=== PATIENT | female | born 2000 | race Caucasian/White ===

== ENCOUNTER 2021-03-03 11:37 | Emergency (ER) | payer BC ==
[2021-03-03 11:47] VITALS: RESP 18; TEMP 98.7
[2021-03-03] MEDS ORDERED: SODIUM CHLORIDE 0.9% 2,000 ML IV STA (12:41)
[2021-03-03] MEDS ORDERED: diphenhydrAMINE 50 MG/ML 1 ML VIAL IVP STA (12:41)
[2021-03-03] MEDS ORDERED: METOCLOPRAMIDE 5 MG/ML 2 ML VIAL IVP STA (12:41)
[2021-03-03 13:19] LABS: Basophils % (A) 1 %; Eosinophils % (A) 1 %; HCT 37.6 % (34.0-46.0); HGB 13.2 gm/dL (11.4-16.0); Lymphocytes # (A) 1.4 k/uL (1.0-4.8); Lymphocytes % (A) 27 %; MCH 30.6 pg (25.0-35.0); MCHC 35.1 g/dL (31.0-37.0); MCV 87.2 fL (80.0-100.0); Mean Platelet Volume 8.4; Monocytes # (A) 0.2 k/uL (0-1.0); Monocytes % (A) 5 %; Neutrophils # (A) 3.4 k/uL (1.3-7.7); Neutrophils % (A) 65 %; Platelet Count 150 k/uL (150-450); RBC 4.31 m/uL (3.80-5.40); RDW 14.1 % (11.5-15.5); WBC 5.2 k/uL (3.8-10.6)
[2021-03-03 13:32] LABS: ALT 8 U/L (4-34); AST 25 U/L (14-36); African American GFR (CKD) >90 (>60 ml/min/1.73 sqM); Albumin 4.9 g/dL (3.5-5.0); Alkaline Phosphatase 45 U/L (38-126); Anion Gap 12 mmol/L; Blood Urea Nitrogen 8 mg/dL (7-17); Calcium 9.5 mg/dL (8.4-10.2); Carbon Dioxide 22 mmol/L (22-30); Chloride 102 mmol/L (98-107); Glucose 80 mg/dL (74-99); Non-African American GFR(CKD) >90 (>60 ml/min/1.73 sqM); Potassium 3.7 mmol/L (3.5-5.1); Sodium 136 mmol/L (137-145); Total Bilirubin 0.6 mg/dL (0.2-1.3); Total Protein 7.8 g/dL (6.3-8.2)
[2021-03-03 13:44] LABS: Appearance,Urine Cloudy (Clear); Bilirubin,Urine Negative (Negative); Blood,Urine Negative (Negative); Color,Urine Yellow; Glucose,Urine (UA) Negative (Negative); Ketones,Urine 3+ (Negative); Leukocyte Esterase,Urine Negative (Negative); Mucus,Urine Few /hpf; Nitrite,Urine Negative (Negative); Protein,Urine Trace (Negative); RBC,Urine 1 /hpf (0-5); Specific Gravity,Urine 1.027 (1.001-1.035); Squamous Epithelial Cell,Urine 3 /hpf (0-4); Urobilinogen,Urine <2.0 mg/dL (<2.0); WBC,Urine 2 /hpf (0-5)
--- NOTE | 2021-03-03 14:21 | ED ---
General Adult HPI - General Chief complaint: Nausea/Vomiting/Diarrhea Stated complaint: 9 wks preg, vomiting Time Seen by Provider: 03/03/21 11:52 Source: patient, family Mode of arrival: ambulatory Limitations: no limitations - History of Present Illness Initial comments: 20-year-old female presents to the emergency room for a chief complaint of nausea vomiting. Patient is a female currently 9 weeks with a confirmed intrauterine on ultrasound at her [facility] [facility] Dr. Jay's office. Patient states for the past few weeks she has had nausea vomiting. However the past day or so she has been unable to keep down food. Patient states that she is not having any abdominal pain or vaginal bleeding. No fevers. No diarrhea. Patient is not currently on any medications for nausea.Patient has no other complaints at this time including shortness of breath, chest pain, abdominal pain, headache, or visual changes. - Related Data Home Medications Medication Instructions Recorded Confirmed Thyroid,Pork [[place] Thyroid] 15 mg PO DAILY 03/03/21 03/03/21 Previous Rx's Medication Instructions Recorded Doxylamine Succinate [Unisom] 25 mg PO HS #14 tablet 03/03/21 Pyridoxine HCl (Vitamin B6) 25 mg PO HS #14 tablet 03/03/21 [Pyridoxine HCl] Allergies Allergy/AdvReac Type Severity Reaction Status Date / Time No Known Allergies Allergy Verified 03/03/21 12:27 Review of Systems ROS Statement: Those systems with pertinent positive or pertinent negative responses have been documented in the HPI. ROS Other: All systems not noted in ROS Statement are negative. Past Medical History Past Medical History: No Reported History History of Any Multi-Drug Resistant Organisms: None Reported Additional Past Surgical History / Comment(s): lumpectomy left breast Past Psychological History: No Psychological Hx Reported Smoking Status: Never smoker Past Alcohol Use History: None Reported Past Drug Use History: None Reported General Exam Limitations: no limitations General appearance: alert, in no apparent distress Head exam: Present: atraumatic Eye exam: Present: normal appearance, PERRL, EOMI. Absent: scleral icterus, conjunctival injection ENT exam: Present: normal exam, mucous membranes moist Neck exam: Present: normal inspection, full ROM. Absent: tenderness Respiratory exam: Present: normal lung sounds bilaterally. Absent: respiratory distress, wheezes Cardiovascular Exam: Present: regular rate, normal rhythm, normal heart sounds GI/Abdominal exam: Present: soft, normal bowel sounds. Absent: distended, tende rness Course Vital Signs 03/03/21 11:43 Temperature 98.7 F Pulse Rate 74 Respiratory 18 Rate Blood Pressure 114/64 O2 Sat by Pulse 100 Oximetry Medical Decision Making - Medical Decision Making Vitals are stable. Patient is well-appearing. CBC CMP unremarkable. Ur inalysis does show 3+ ketones, likely related to dehydration. Patient was given Reglan as well as 2 L of fluid. Did have significant improvement in symptoms. She denies any vomiting in the emergency room. We will start patient On Unisom and B6. Patient can be discharged home to follow up with [employer]. If she has any worsening symptoms she'll return here in the emergency room. - Lab Data Result diagrams: 03/03/21 13:00 03/03/21 13:00 Lab Results 03/03/21 03/03/21 03/03/21 Range/Units 13:00 13:00 13:00 WBC 5.2 (3.8-10.6) k/uL RBC 4.31 (3.80-5.40) m/uL Hgb 13.2 (11.4-16.0) gm/dL Hct 37.6 (34.0-46.0) % MCV 87.2 (80.0-100.0) fL MCH 30.6 (25.0-35.0) pg MCHC 35.1 (31.0-37.0) g/dL RDW 14.1 (11.5-15.5) % Plt Count 150 (150-450) k/uL MPV 8.4 Neutrophils % 65 % Lymphocytes % 27 % Monocytes % 5 % Eosinophils % 1 % Basophils % 1 % Neutrophils # 3.4 (1.3-7.7) k/uL Lymphocytes # 1.4 (1.0-4.8) k/uL Monocytes # 0.2 (0-1.0) k/uL Eosinophils # 0.0 (0-0.7) k/uL Basophils # 0.0 (0-0.2) k/uL Sodium 136 L (137-145) mmol/L Potassium 3.7 (3.5-5.1) mmol/L Chloride 102 (98-107) mmol/L Carbon Dioxide 22 (22-30) mmol/L Anion Gap 12 mmol/L BUN 8 (7-17) mg/dL Creatinine 0.51 L (0.52-1.04) mg/dL Est GFR (CKD-EPI)AfAm >90 (>60 ml/min/1.73 sqM) Est GFR (CKD-EPI)NonAf >90 (>60 ml/min/1.73 sqM) Glucose 80 (74-99) mg/dL Calcium 9.5 (8.4-10.2) mg/dL Total Bilirubin 0.6 (0.2-1.3) mg/dL AST 25 (14-36) U/L ALT 8 (4-34) U/L Alkaline Phosphatase 45 (38-126) U/L Total Protein 7.8 (6.3-8.2) g/dL Albumin 4.9 (3.5-5.0) g/dL Urine Color Yellow Urine Appearance Cloudy H (Clear) Urine pH 6.0 (5.0-8.0) Ur Specific [place] 1.027 (1.001-1.035) Urine Protein Trace H (Negative) Urine Glucose (UA) Negative (Negative) Urine Ketones 3+ H (Negative) Urine Blood Negative (Negative) Urine Nitrite Negative (Negative) Urine Bilirubin Negative (Negative) Urine Urobilinogen <2.0 (<2.0) mg/dL Ur Leukocyte Esterase Negative (Negative) Urine RBC 1 (0-5) /hpf Urine WBC 2 (0-5) /hpf Ur Squamous Epith Cells 3 (0-4) /hpf Urine Mucus Few H (None) /hpf Disposition Clinical Impression: Nausea and vomiting during Disposition: HOME SELF-CARE Condition: Good Instructions (If sedation given, give patient instructions): Nausea and Vomiting in (ED) Additional Instructions: Try small sips of fluid. Take medication as directed. Follow-up with your doctor in one to 2 days. Return to the emergency room for any worsening symptoms. Prescriptions: Pyridoxine HCl (Vitamin B6) [Pyridoxine HCl] 25 mg PO HS #14 tablet Doxylamine Succinate [Unisom] 25 mg PO HS #14 tablet Is patient prescribed a controlled substance at d/c from ED?: No Referrals: Sabine Ponce DO [Primary Care Provider] - 1-2 days Time of Disposition: 14:19
[2021-03-03 14:45] VITALS: BP 103/62; PULSE 85
== END 2021-03-03 14:44 | disposition home or self-care (01) ==
LOC: EC 11:37
DX: O21.9 Vomiting of pregnancy, unspecified (principal); Z3A.09 9 weeks gestation of pregnancy
CPT/HCPCS: 99284; 96374; 96375; 96361 ×2; 36415; 80053; 85025; 81001; J1200; J2765

== ENCOUNTER 2021-09-25 11:18 | Inpatient (IN) | payer BC ==
--- NOTE | 2021-09-25 12:44 | US ---
EXAMINATION TYPE: US OB >= 14 wk fetus DATE OF EXAM: 09/25/2021 COMPARISON: None CLINICAL HISTORY: Dr. Jay ordered EFW and GEREMIAS, GEREMIAS low in the office TECHNIQUE: Transabdominal (TA) GESTATIONAL AGE / DATING Physician Established: (39 weeks/1 days) EDC: 10/01/21 Dates by LMP: LMP unknown Dates by First Scan: No previous this is first scan here Dates by Current Scan: (38 weeks/0 days) EDC: 10/09/21 SURVEY IUP: Single PLACENTA: Anterior PREVIA: No Previa GEREMIAS: 6.0 cm Oligohydramnios CERVICAL LENGTH (transabdominal: norm > 3.0cm): 3.0 cm BIOMETRY PRESENTATION: Vertex LIE: Longitudinal BPD: 9.3 cm 38 weeks / 0 days HC: 33.4 cm 38 weeks / 6 days AC: 33.1 cm 37 weeks / 0 days FL: 7.4 cm 38 weeks / 1 days ESTIMATED WEIGHT IN GRAMS: 3241 grams ESTIMATED WEIGHT IN LBS/OZ: 7 lbs. 2 oz. WEIGHT PERCENTAGE BASED ON ESTABLISHED DATES: 31% HC/AC: 1.02 Normal FL/AC: 22% Normal HEART RATE: 130 bpm RHYTHM: Normal incidental finding: small bilateral scrotal hydroceles IMPRESSION: 1. Oligohydramnios. Measured GEREMIAS is 6.0 cm. 2. Single intrauterine gestation estimated at 38 weeks 0 days gestation based on current ultrasound m easurements. Cardiac activity measures 130 bpm. 3. Incidental note made of bilateral small hydroceles
--- NOTE | 2021-09-25 13:03 | P.HPOB ---
History of Present Illness H&P Date: 09/25/21 Chief Complaint: IUP at 39 and 1/sevenths weeks, oligohydramnios This is a 21-year-old 1 para 0 at 39 one sevenths weeks that presents to labor and delivery from the office with diagnosis of oligohydramnios, GEREMIAS in the office 4. Patient had a repeat GEREMIAS done in triage level of 5. Patient does note good movement. Patient has been receiving routine care with has been essentially uncomplicated. On bloodwork this patient's blood type of O+, rubella status immune, RPR is nonreactive, B surface antigen negative, HIV negative, group beta strep culture is positive. Review of Systems Constitutional: Denies chills, Denies fatigue, Denies fever Ears, nose, mouth and throat: Denies headache Cardiovascular: Reports leg edema Respiratory: Denies dyspnea Gastrointestinal: Denies constipation, Denies diarrhea, Denies nausea, Denies vomiting Genitourinary: Reports Past Medical History Past Medical History: No Reported History History of Any Multi-Drug Resistant Organisms: None Reported Additional Past Surgical History / Comment(s): lumpectomy left breast Smoking Status: Never smoker Medications and Allergies Home Medications Medication Instructions Recorded Confirmed Type Thyroid,Pork [[place] Thyroid] 15 mg PO DAILY 03/03/21 09/25/21 History Pnv No.95/Ferrous Fum/Folic AC 1 each PO DAILY 09/25/21 09/25/21 History [ Multivitamin Tablet] Allergies Allergy/AdvReac Type Severity Reaction Status Date / Time No Known Allergies Allergy Verified 09/25/21 11:29 Exam Osteopathic Statement: *. No significant issues noted on an osteopathic structural exam other than those noted in the History and Physical/Consult. Intake and Output 09/24/21 09/25/21 09/25/21 22:59 06:59 14:59 Other: Weight 77.111 kg Targeted physical exam is performed on this date a well-nourished well- developed female in no distress, breathing is noted to be nonlabored, heart has regular rate and rhythm, abdomen is gravid and appropriate for gestational age, heart tones are noted to be category 1 and she is not sandy, on cervical exam she is 1/70/-2 station vertex presentation. Assessment and Plan (1) Term Current Visit: Yes Status: Acute Code(s): Z34.90 - ENCNTR FOR SUPRVSN OF NORMAL , UNSP, UNSP TRIMESTER SNOMED Code(s): 02770907 (2) Oligohydramnios Current Visit: Yes Status: Acute Code(s): O41.00X0 - OLIGOHYDRAMNIOS, UNSP TRIMESTER, NOT APPLICABLE OR UNSP SNOMED Code(s): 30160410 Plan: 21-year-old 1 para 0 at 39 and one sevenths weeks with known diagnosis of oligohydramnios. Patient is admitted to labor and delivery for Pitocin induction of labor. Patient is counseled on options for analgesia including but not limited to Stadol and epidural. Patient does desire epidural placement. Patient is counseled on diagnosis of oligohydramnios and all questions are answered.
[2021-09-25] MEDS ORDERED: CARBOPROST TROMETHAMINE 250 MCG/ML 1 ML AMP IM PRN (13:06)
[2021-09-25] MEDS ORDERED: TERBUTALINE 1 MG/ML VIAL SQ PRN (13:06)
[2021-09-25] MEDS ORDERED: METHYLERGONOVINE 0.2 MG/ML 1 ML AMP IM PRN (13:06)
[2021-09-25] MEDS ORDERED: LIDOCAINE 1% (PF) 10 MG/ML (30 ML SDV) SQ PRN (13:06)
[2021-09-25] MEDS ORDERED: AMPICILLIN 2,000 MG in SODIUM CHLORIDE 0.9% 100 ML IVPB STA (13:06)
[2021-09-25] MEDS ORDERED: OXYTOCIN 10 UNIT/ML 1 ML VIAL IM PRN (13:06)
[2021-09-25] MEDS: LACTATED RINGERS 1,000 ML IV SCH ×2 (13:15→23:25)
[2021-09-25] MEDS ORDERED: OXYTOCIN 30 UNITS/500 ML NS 30 UNIT in SALINE 1 500ML.BAG IV SCH (13:15)
[2021-09-25 13:29] LABS: Basophils % (A) 0 %; Eosinophils % (A) 0 %; HCT 34.5 % (34.0-46.0); HGB 11.8 gm/dL (11.4-16.0); Lymphocytes # (A) 2.1 k/uL (1.0-4.8); Lymphocytes % (A) 23 %; MCH 28.6 pg (25.0-35.0); MCHC 34.2 g/dL (31.0-37.0); MCV 83.8 fL (80.0-100.0); Mean Platelet Volume 9.6; Monocytes # (A) 0.4 k/uL (0-1.0); Monocytes % (A) 4 %; Neutrophils # (A) 6.5 k/uL (1.3-7.7); Neutrophils % (A) 70 %; Platelet Count 195 k/uL (150-450); RBC 4.12 m/uL (3.80-5.40); RDW 13.5 % (11.5-15.5); WBC 9.3 k/uL (3.8-10.6)
[2021-09-25] MEDS: AMPICILLIN 1,000 MG in SODIUM CHLORIDE 0.9% 50 ML IVPB SCH ×2 (15:15→21:40)
[2021-09-25] MEDS ORDERED: SODIUM CHLORIDE 0.9% 100 ML BAG ONE (17:37)
[2021-09-25] MEDS ORDERED: fentaNYL (PF) 50 MCG/ML 5 ML AMP ONE (17:37)
[2021-09-25] MEDS ORDERED: ROPIVACAINE 5MG/ML 20ML VIAL ONE (17:37)
[2021-09-25] MEDS ORDERED: CITRIC ACID-SODIUM CITRATE 15 ML CUP PO ONE (23:06)
[2021-09-25] MEDS ORDERED: OXYTOCIN 30 UNITS/500 ML NS BAG IV ONE (23:40)
[2021-09-25] MEDS ORDERED: NALBUPHINE 10 MG/ML (1 ML AMP) ONE (23:40)
[2021-09-25] MEDS ORDERED: ONDANSETRON 4 MG/2 ML VIAL ONE (23:40)
[2021-09-25] MEDS ORDERED: HYDROmorphone (PF) 1 MG/ML ONE (23:40)
[2021-09-25] MEDS ORDERED: OXYTOCIN 10 UNIT/ML 1 ML VIAL ONE (23:40)
--- NOTE | 2021-09-26 00:29 | P.OP ---
Date of Procedure: 09/25/21 Preoperative Diagnosis: IUP at 3 39 and one sevenths weeks, oligohydramnios, arrest of descent Postoperative Diagnosis: Same Anesthesia: epidural Surgeon: Adrienne Jay Emergency Service Restorer #1: Sonia Daniel Estimated Blood Loss (ml): 500 IV fluids (ml): 800 Urine output (ml): 200 (red tinged clearing at the end of surgery ) Pathology: other (Placenta) Condition: stable Disposition: PACU Indications for Procedure: 21-year-old 1 para 0 at 39 and one sevenths weeks that was admitted early this afternoon for oligohydramnios. Patient underwent Pitocin augmentation of labor, amniotomy with scant clear fluid was appreciated. Patie nt made progress through labor eventually becoming uncomfortable and requesting epidural placement. Epidural was placed without difficulty by the anesthesia . Patient made progress through labor eventually becoming complete and began pushing. After approximate 2 hours of pushing no descent was appreciated. Decision for primary was made. All questions were answered. Patient stated understanding of the need for secondary to arrest of descent. Operative Findings: Viable male infant delivered at 2356, weight of 6 lbs. 13 oz., Apgars of 9 and 10 at one and 5 minutes respectively. Normal uterus tubes and ovaries were appreciated. was noted to be wedged deep into the pelvis. Description of Procedure: Patient was taken back to the operating suite where epidural anesthesia was found be adequate. She was then prepped and draped in normal sterile fashion in the dorsal supine position. A Pfannenstiel skin incision was made with the scalpel and carried through to the underlying layer of fascia. The fascia was then incised in the midline and the incision was extended laterally. The superior aspect the fascial incision was then grasped santa clamps, elevated and underlying rectus muscle was dissected off sharply. The inferior aspect the fascial incision was then grasped with Santa clamps, elevated and underlying rectus muscles dissected off sharply. The rectus muscles were in the midline the peritoneum was identified and entered. The incision was then extended superiorly and inferiorly with good visualization the bladder. Bladder blade was then inserted into the pelvis. The vesicouterine peritoneum was identified and the bladder flap was created using sharp and blunt dissection. The bladder blade was then reinserted into the pelvis. Hysterotomy incision was made with the scalpel the was encountered in a vertex presentation deep in the pelvis that head was elevated through the hysterotomy incision and delivered in the usual fashion. A spontaneous cry was noted at . The umbilical cord was doubly clamped and cut and the was handed off to lesly gauthier RN. The placenta was delivered manually and the uterus was cleared of all clots and debris. The uterus was delivered from the abdomen. The uterine incision was closed with 0 Vicryl in a running locked fashion. A second imbricating suture was preformed. A small amount bleeding was noted on the right-hand side of the uterine incision therefore a [id number] suture was used to obtain hemostasis. The pelvis was then copiously irrigated. The uterine incision was inspected and found to be hemostatic and the uterus was returned to the abdomen. On further inspection of the hysterotomy incision bleeding was noted on the midportion therefore a [id number] suture was used to obtain hemostasis. The gutters were cleared of all clots and debris. Hysterotomy incision was inspected and found to be hemostatic. The bladder was inspected and found to be intact. The bladder blade was removed from the pelvis the peritoneum was then loosely reapproximated. The rectus muscles were inspected and found to be hemostatic. The fascia was then closed with 0 Vicryl in a running fashion from one lateral edge the midline and the other lateral edge the midline. Subcutaneous tissue was irrigated and any points of bleeding were made hemostatic with the Bovie. The subcu tissue was closed with 3-0 Vicryl in a running fashion. The skin was then closed with 4-0 Vicryl in a subcuticular fashion. Steri-Strips and sterile dressings were applied. All counts were noted to be correct 2 at the end of the procedure. Patient and tolerated delivery well and are resting comfortable he.
[2021-09-26] MEDS ORDERED: SIMETHICONE 80 MG CHEWABLE PO PRN (00:33)
[2021-09-26] MEDS ORDERED: ZOLPIDEM 5 MG TAB PO PRN (00:33)
[2021-09-26] MEDS ORDERED: diphenhydrAMINE 50 MG/ML 1 ML VIAL IVP PRN ×2 (00:33)
[2021-09-26] MEDS ORDERED: diphenhydrAMINE 50 MG CAP PO PRN (00:33)
[2021-09-26] MEDS ORDERED: diphenhydrAMINE 25 MG CAP PO PRN (00:33)
[2021-09-26] MEDS ORDERED: METOCLOPRAMIDE 5 MG/ML 2 ML VIAL IVP PRN (00:33)
[2021-09-26] MEDS ORDERED: NALOXONE 0.4 MG/ML 1 ML VIAL IV PRN (00:33)
[2021-09-26] MEDS ORDERED: OXYTOCIN 30 UNITS/500 ML NS 30 UNIT in SALINE 1 500ML.BAG IV SCH (00:33)
[2021-09-26] MEDS ORDERED: ONDANSETRON 4 MG/2 ML VIAL IVP PRN (00:33)
[2021-09-26] MEDS: ACETAMINOPHEN IV (For NPO) 1,000 MG in EMPTY BAG 1 BAG IVPB SCH ×2 (01:05→06:17)
[2021-09-26] MEDS: LACTATED RINGERS 1,000 ML IV SCH ×5 (01:22→15:03)
[2021-09-26] MEDS: AMPICILLIN 1,000 MG in SODIUM CHLORIDE 0.9% 50 ML IVPB SCH (01:23)
[2021-09-26] MEDS: MORPHINE SULFATE 2 MG/ML SYRINGE IVP PRN ×2 (01:53→04:26)
[2021-09-26] MEDS: ACETAMINOPHEN TAB 500 MG TAB PO SCH ×4 (02:30→23:08)
[2021-09-26] MEDS: IBUPROFEN IV 800 MG in SODIUM CHLORIDE 0.9% 250 ML IV SCH ×3 (06:06→19:57)
[2021-09-26] MEDS: IBUPROFEN 600 MG TAB PO SCH ×3 (06:16→19:56)
[2021-09-26] MEDS: KETOROLAC 15 MG/ML 1 ML VIAL IVP SCH ×3 (06:17→21:05)
[2021-09-26 08:13] LABS: Basophils % (A) 0 %; Eosinophils % (A) 0 %; HCT 29.2 % (34.0-46.0); Lymphocytes # (A) 1.6 k/uL (1.0-4.8); Lymphocytes % (A) 11 %; MCHC 34.1 g/dL (31.0-37.0); MCV 85.3 fL (80.0-100.0); Mean Platelet Volume 10.1; Monocytes # (A) 0.5 k/uL (0-1.0); Monocytes % (A) 4 %; Neutrophils % (A) 85 %; Platelet Count 141 k/uL (150-450); RBC 3.42 m/uL (3.80-5.40); RDW 13.1 % (11.5-15.5); WBC 14.1 k/uL (3.8-10.6)
[2021-09-26 08:15] LABS: HGB 9.9 gm/dL (11.4-16.0)
--- NOTE | 2021-09-26 08:22 | P.PN ---
Progress Note - Text Progress Note Date: 09/26/21 (2708) Anesthesia Postop day 1 Subjective: Status Post section with Duramorph. Patient seen and examined. Doing well without complaint. VAS 4 out of 10. No nausea or vomiting. Mild pruritus tolerable.. Afebrile. Gross lower extremity strength intact. . Without apparent anesthetic complications. Objective: Vital signs reviewed Heart: Regular Rate Lungs: Good chest excursion Abdomen: Appears nondistended Assessment: Status post with Duramorph postop day 1 Plan: Continue current care with your medical management. Anticipated and the Duramorph around midnight tonight, you may see increased pain needs around this time.
[2021-09-26] MEDS: THYROID, PORK 30 MG TAB PO SCH (08:57)
[2021-09-26] MEDS: SENNOSIDES-DOCUSATE SODIUM 1 EACH TAB PO SCH ×2 (08:57→19:56)
[2021-09-26] MEDS ORDERED: PRENATAL VIT-IRON-FOLIC ACID 1 EACH CAP PO SCH (09:00)
--- NOTE | 2021-09-26 10:28 | P.PN ---
Subjective Progress Note Date: 09/26/21 Principal diagnosis: Doing well postoperative day #1 Slept well. Pain well managed. with temperature issues, not eligible for circumcision this morning. Objective - Vital Signs Vital signs: Vital Signs Temp 98.5 F 09/26/21 08:00 Pulse 71 09/26/21 08:00 Resp 16 09/26/21 08:00 BP 109/69 09/26/21 08:00 Pulse Ox 96 09/26/21 08:00 Intake & Output 09/25/21 09/26/21 09/26/21 18:59 06:59 18:59 Intake Total 22.533 Output Total 2672 300 Balance -2649.467 -300 Weight 77.111 kg Intake: Intake, IV Titration 22.533 Amount Oxytocin 30 Units/500 ml 22.533 Ns 30 unit In Saline 1 500ml.bag @ Per Protocol IV .Q0M [facility] Rx#:[id number] Output: Urine 1050 300 Uretheral (Coy) 300 Output, Quantitative 1622 Blood Loss Other: Voiding Method Indwelling Catheter Indwelling Catheter # Voids 2 - Constitutional General appearance: Present: average body habitus, cooperative - EENT Eyes: Present: PERRLA ENT: Present: hearing grossly normal - Neck Neck: Present: normal ROM - Respiratory Respiratory: bilateral: CTA - Cardiovascular Rhythm: regular - Gastrointestinal General gastrointestinal: Present: normal bowel sounds - Genitourinary Genitourinary Comment(s): Fundus firm, midline, symmetric and 18 week size. Dressing intact. Steri- Strips well approximated. Minimal lochia rubra. - Integumentary Integumentary: Present: normal - Neurologic Neurologic: Present: CNII-XII intact - Musculoskeletal Musculoskeletal: Present: gait normal, strength equal bilaterally - Labs CBC & Chem 7: 09/26/21 07:50 Labs: Abnormal Lab Results - Last 24 Hours (Table) 09/26/21 Range/Units 07:50 WBC 14.1 H (3.8-10.6) k/uL RBC 3.42 L (3.80-5.40) m/uL Hgb 9.9 L D (11.4-16.0) gm/dL Hct 29.2 L (34.0-46.0) % Plt Count 141 L (150-450) k/uL Neutrophils # 12.0 H (1.3-7.7) k/uL Assessment and Plan Assessment: Doing well postoperative day #1 Plan: Continue postoperative care. Likely circumcision tomorrow. Advanced diet and activity. Begin ferrous sulfate once daily. Time with Patient: Less than 30
[2021-09-26] MEDS: FERROUS SULFATE 325 MG TAB PO SCH (17:11)
[2021-09-26 21:04] VITALS: RESP 16
[2021-09-27] MEDS: IBUPROFEN IV 800 MG in SODIUM CHLORIDE 0.9% 250 ML IV SCH (00:36)
[2021-09-27] MEDS: LACTATED RINGERS 1,000 ML IV SCH (00:37)
[2021-09-27] MEDS: KETOROLAC 15 MG/ML 1 ML VIAL IVP SCH (00:37)
[2021-09-27] MEDS: IBUPROFEN 600 MG TAB PO SCH ×2 (02:11→08:39)
[2021-09-27] MEDS: ACETAMINOPHEN TAB 500 MG TAB PO SCH ×2 (04:56→15:18)
[2021-09-27] MEDS: SENNOSIDES-DOCUSATE SODIUM 1 EACH TAB PO SCH (08:38)
--- NOTE | 2021-09-27 09:11 | P.DS ---
Providers Date of admission: 09/25/21 12:34 Expected date of discharge: 09/27/21 Attending physician: Adrienne Jay Primary care physician: Stated None Hospital Course: This is a 21-year-old white female 1 para 0 EDC 10/01/2021 at 39 and one sevenths weeks' gestation who presented with decreased amniotic fluid index in the office, for induction of labor. is remarkable for positive group B strep cultures, rubella status immune, blood type O+. Please see dictated history and physical for details. Patient progressed through labor, became completely dilated, but after 2 hours in the second stage had no descent. Therefore primary low transverse section was performed. She gave to a liveborn male infant with scores of 9 and 10 at one and 5 minutes respectively. Infant weighed 6 lbs. 13 oz. or 3100 g. Please see dictated delivery note for details. Postoperatively the patient has done well. This morning she is voiding, ambulating, passing flatus without difficulty. Vital signs are stable and she is afebrile. Incision is clean and dry, intact, Steri-Strips applied. Extremities are negative for edema. Breast-feeding is going well. circumcision is being performed this morning. Patient is judged to be in good condition for discharge home. She will follow-up with her primary vendor specialist in 2 weeks. No driving, no heavy lifting, no intercourse, nothing per vagina. She will use ibuprofen 200 mg pills, 3 every 6 hours as needed for pain and alternate this with extra strength Tylenol as needed. Medications to be taken with food or water. She will call with any fevers shakes or chills, foul smelling or copious lochia, with the passage of large blood clots, with any pain not alleviated by [id number] products, or with any concerns. [place] will follow-up with marketing operations assistant as per recommendations. Assessment: Doing well second postoperative day Patient Condition at Discharge: Good Plan - Discharge Summary Discharge Rx Participant: No New Discharge Prescriptions: No Action Thyroid,Pork [[place] Thyroid] 15 mg PO DAILY Pnv No.95/Ferrous Fum/Folic AC [ Multivitamin Tablet] 1 each PO DAILY Discharge Medication List Thyroid,Pork [[place] Thyroid] 15 mg PO DAILY 03/03/21 [History] Pnv No.95/Ferrous Fum/Folic AC [ Multivitamin Tablet] 1 each PO DAILY 09/25/21 [History] Follow up Appointment(s)/Referral(s): Adrienne Jay DO [Doctor of Osteopathic Medicine] - 2 Weeks Discharge Disposition: HOME SELF-CARE
[2021-09-27] MEDS: FERROUS SULFATE 325 MG TAB PO SCH (12:23)
[2021-09-27] MEDS: THYROID, PORK 30 MG TAB PO SCH (12:23)
[2021-09-27 16:12] VITALS: BP 130/71; PULSE 92; TEMP 99
== END 2021-09-27 17:12 | disposition home or self-care (01) | DRG 807 ==
LOC: FBPOP 11:18 → 4FBP 12:34
PROVIDERS: ADMIT Obstetrics & Gynecology Obstetrics; ATTEND Obstetrics & Gynecology Obstetrics
PROC: 10E0XZZ Delivery of Products of Conception, External Approach (ICD-10-PCS; principal; 2021-09-25 23:56)
DX: O41.03X0 Oligohydramnios, third trimester, not applicable or unspecified (principal); Z37.0 Single live birth; L29.9 Pruritus, unspecified; O62.1 Secondary uterine inertia; Z3A.39 39 weeks gestation of pregnancy
CPT/HCPCS: 59025; 76805; 85025; 86850; 86900; 86901; 88307; 99213

== ENCOUNTER → 2022-07-24 | Outpatient (CLI) | payer OTHER | END | disposition home or self-care (01) | LOC: LABWHC1 15:02 | PROVIDERS: ATTEND Nurse Practitioner Family | DX: E06.3 Autoimmune thyroiditis (principal) | CPT/HCPCS: 36415; 84443 ==

== ENCOUNTER → 2022-10-08 | Outpatient (CLI) | payer OTHER | END | disposition home or self-care (01) | LOC: LABWHC1 13:05 | PROVIDERS: ATTEND Internal Medicine Endocrinology, Diabetes & Metabolism | DX: E03.8 Other specified hypothyroidism (principal) | CPT/HCPCS: 36415; 84443 ==

== ENCOUNTER → 2022-11-27 | Outpatient (CLI) | payer OTHER | END | disposition home or self-care (01) | LOC: LABWHC1 13:22 | PROVIDERS: ATTEND Internal Medicine Endocrinology, Diabetes & Metabolism | DX: Z53.9 Procedure and treatment not carried out, unspecified reason (principal) ==

== ENCOUNTER → 2022-12-15 | Outpatient (CLI) | payer OTHER ==
--- NOTE | 2022-12-15 08:45 | USB ---
Reason for Exam: Clinical finding. Technique: Method: Targeted. Findings: The lower inner quadrant of the right breast, the axilla of the right breast and the retroareolar of the right breast were scanned. Targeted ultrasound of the right breast from 3-6 o'clock was performed with additional evaluation of the nipple and axilla. There is a heterogenous region within the right breast at 4:00 4 cm from nipple at the patient's region of abnormality measuring 1.0 x 0.7 x 1.4 cm which is slightly hypoechoic with striations identified. Ill-defined borders identified. No color flow. Somewhat seems similar to surrounding dense breast tissue. No posterior acoustic features are identified. This may represent dense breast tissue. Overall Assessment: Probably benign, BI-RAD 3 Management: Diagnostic Breast Ultrasound of the right breast in 6 months. A clinical breast exam by your physician is recommended on an annual basis and results should be correlated with mammographic findings. This exam should not preclude additional follow-up of suspicious palpable abnormalities. Results were given to the patient verbally at the time of exam. Electronically signed and approved by: Wong Haque D.O.
== END | disposition home or self-care (01) ==
LOC: RADUSWWP 08:07
PROVIDERS: ATTEND Obstetrics & Gynecology Obstetrics
DX: N63.14 Unspecified lump in the right breast, lower inner quadrant (principal)

== ENCOUNTER → 2023-05-21 | Outpatient (CLI) | payer OTHER | END | disposition home or self-care (01) | LOC: LABWHC1 11:04 | PROVIDERS: ATTEND Internal Medicine Endocrinology, Diabetes & Metabolism | DX: E03.8 Other specified hypothyroidism (principal) | CPT/HCPCS: 36415; 84443 ==

== ENCOUNTER 2023-06-11 06:00 | Inpatient (IN) | payer OTHER ==
[2023-06-11] MEDS ORDERED: METHYLERGONOVINE 0.2 MG/ML 1 ML AMP IM PRN (06:13)
[2023-06-11] MEDS ORDERED: miSOPROStoL 200 MCG TAB PO PRN (06:13)
[2023-06-11] MEDS ORDERED: OXYTOCIN 10 UNIT/ML 1 ML VIAL IM PRN (06:13)
[2023-06-11] MEDS ORDERED: CARBOPROST TROMETHAMINE 250 MCG/ML 1 ML AMP IM PRN (06:13)
[2023-06-11] MEDS ORDERED: TRANEXAMIC 1,000 MG/100ML-NACL 1,000 MG in EMPTY BAG 1 BAG IV PRN (06:13)
[2023-06-11] MEDS ORDERED: CITRIC ACID-SODIUM CITRATE 15 ML CUP PO ONE (06:13)
[2023-06-11 06:36] LABS: Basophils % (A) 0 %; Eosinophils # (A) 0.1 k/uL (0-0.7); Eosinophils % (A) 1 %; HGB 12.4 gm/dL (11.4-16.0); Lymphocytes # (A) 1.5 k/uL (1.0-4.8); Lymphocytes % (A) 19 %; MCHC 34.5 g/dL (31.0-37.0); Mean Platelet Volume 8.5; Monocytes # (A) 0.4 k/uL (0-1.0); Monocytes % (A) 5 %; Neutrophils # (A) 5.7 k/uL (1.3-7.7); Neutrophils % (A) 72 %; Platelet Count 142 k/uL (150-450); RBC 4.29 m/uL (3.80-5.40); RDW 13.7 % (11.5-15.5)
[2023-06-11] MEDS: LACTATED RINGERS 1,000 ML IV SCH ×3 (06:36→16:55)
[2023-06-11] MEDS ORDERED: PHENYLEPHRINE-0.9% NACL SYG 1,000 MCG/10 ML SYRINGE ONE (08:12)
[2023-06-11] MEDS ORDERED: OXYTOCIN 30 UNITS/500 ML NS BAG IV ONE (08:12)
[2023-06-11] MEDS ORDERED: ONDANSETRON 4 MG/2 ML VIAL ONE (08:12)
[2023-06-11] MEDS ORDERED: MORPHINE SULFATE (PF) 0.3 MG/0.3 ML SYR ONE (08:12)
[2023-06-11] MEDS ORDERED: diphenhydrAMINE 50 MG/ML 1 ML VIAL IVP PRN ×2 (09:16)
[2023-06-11] MEDS ORDERED: ONDANSETRON 4 MG/2 ML VIAL IVP PRN (09:16)
[2023-06-11] MEDS ORDERED: METOCLOPRAMIDE 5 MG/ML 2 ML VIAL IVP PRN (09:16)
[2023-06-11] MEDS ORDERED: ZOLPIDEM 5 MG TAB PO PRN (09:16)
[2023-06-11] MEDS ORDERED: NALOXONE 0.4 MG/ML 1 ML VIAL IV PRN ×2 (09:16→11:55)
[2023-06-11] MEDS ORDERED: diphenhydrAMINE 25 MG CAP PO PRN (09:16)
[2023-06-11] MEDS ORDERED: diphenhydrAMINE 50 MG CAP PO PRN (09:16)
--- NOTE | 2023-06-11 09:25 | P.HPOB ---
History of Present Illness H&P Date: 06/11/23 Chief Complaint: IUP at 39 1/7 weeks, history of 1, desires RCS This is a 22-year-old at 39 and one sevenths weeks, estimated due date of 06/17 that presents to labor and delivery for scheduled section. Patient's pre-been uncomplicated. Patient is a prior history of a primary C- section, for arrest of descent and desires repeat. Patient was admitted to labor and delivery. Patient notes good movement denies contractions vaginal bleeding or loss of fluid. On bloodwork this patient has a blood type of O+, immune, hepatitis B s urface engine negative, HIV negative, RPR is nonreactive, group beta strep cultures negative. 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 Review of Systems Constitutional: Denies chills, Denies fatigue, Denies fever Ears, nose, mouth and throat: Denies headache Cardiovascular: Denies leg edema Respiratory: Denies dyspnea Gastrointestinal: Denies constipation, Denies diarrhea, Denies nausea, Denies vomiting Genitourinary: Reports Past Medical History Past Medical History: No Reported History, Thyroid Disorder History of Any Multi-Drug Resistant Organisms: None Reported Past Surgical History: Breast Surgery, Section Additional Past Surgical History / Comment(s): lumpectomy left breast Past Anesthesia/Blood Transfusion Reactions: No Reported Reaction Past Psychological History: No Psychological Hx Reported Smoking Status: Never smoker Past Alcohol Use History: None Reported Past Drug Use History: None Reported - Past Family History Father Family Medical History: Hypertension Mother Family Medical History: Hypertension, Thyroid Disorder Additional Family Medical History / Comment(s): anxiety and depression Medications and Allergies Home Medications Medication Instructions Recorded Confirmed Type Pnv No.95/Ferrous Fum/Folic AC 1 each PO DAILY 09/25/21 06/11/23 History [ Multivitamin Tablet] Levothyroxine Sodium [Synthroid] 100 mcg PO DAILY 06/08/23 06/11/23 History Allergies Allergy/AdvReac Type Severity Reaction Status Date / Time No Known Allergies Allergy Verified 06/08/23 11:49 Exam Osteopathic Statement: *. No significant issues noted on an osteopathic structural exam other than those noted in the History and Physical/Consult. 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 Cervical exam is deferred. Results Result Diagrams: 06/11/23 06:20 Abnormal Lab Results - Last 24 Hours (Table) 06/11/23 Range/Units 06:20 Plt Count 142 L (150-450) k/uL Assessment and Plan (1) H/O section Current Visit: Yes Status: Acute Code(s): Z98.891 - HISTORY OF UTERINE SCAR FROM PREVIOUS SURGERY SNOMED Code(s): 153249247 (2) Term Current Visit: No Status: Acute Code(s): Z34.90 - ENCNTR FOR SUPRVSN OF NORMAL , UNSP, UNSP TRIMESTER SNOMED Code(s): 44964125 Plan: 22-year-old 1 at 39 and one sevenths weeks that presents for repeat section. Patient is a prior history of a primary secondary to arrest of descent. Patient is admitted and taken back to the operating suite for scheduled repeat section. Risks are reviewed including but not limited to infection, bleeding, damage to bladder, bowel, injury. Patient states understanding and wishes to proceed.
--- NOTE | 2023-06-11 09:32 | P.OP ---
Date of Procedure: 06/11/23 Preoperative Diagnosis: IUP at 39 and one sevenths weeks, history of 1, desires repeat section. Postoperative Diagnosis: Same plus meconium-stained fluid Procedure(s) Performed: Repeat section, adhesio lysis Anesthesia: spinal Surgeon: Adrienne Jay Lens Generating Machine Tender #1: Bernardo Rausch Estimated Blood Loss (ml): 509 IV fluids (ml): 1,200 Urine output (ml): 300 (Clear yellow) Pathology: other (Placenta) Condition: stable Disposition: PACU Indications for Procedure: History of 1, desires repeat Operative Findings: Viable female infant delivered at 840, weight of 5 lbs. 5 oz., Apgars of 4, 7, 8 at one, 5, 10 minutes respectively. Dense left anterior uterine wall adhesions appreciated omental fundal adhesions appreciated, all taken down sharply with good hemostasis appreciated. Description of Procedure: Patient was taken back to the operating suite where spinal anesthesia was found be adequate. She was prepped and draped in normal sterile fashion in the dorsal supine position. A Pfannenstiel skin incision made with a scalpel and carried through to the underlying layer of fascia. Fascia was incised in the midline and the incision was extended laterally. The superior aspect of the fascial incision was then grasped rajiv clamps, elevated and underlying rectus muscles dissected off sharply. The inferior aspect of the fascial incision was then grasped rajiv clamps, elevated and underlying rectus muscles dissected off sharply. The rectus muscles were in the midline the peritoneum was identified and entered. Dense abdominal wall adhesions to the uterus were appreciated on the left side. The peritoneal incision was extended superiorly and inferiorly with good visualization the bladder. Bladder blade was then inserted. The anterior uterine adhesion was taken down with the Bovie, hemostasis was noted. The bladder blade was inserted into the pelvis to ensure the bladder was away from the operating field. A hysterotomy incision was made with the scalpel, meconium-stained fluid was appreciated upon rupture of membranes. The was then encountered in a vertex presentation and delivered in the usual fashion. The umbilical cord was then doubly clamped and cut and the infant was handed off to awaiting RN. Cord blood was then taken. Placenta was delivered manually and the uterus cleared of all clots and debris. The uterus was then delivered from the abdomen and the prior uterine wall adhesions site was visualized. A small amount of oozing was noted. The omental adhesion was taken off sharply with the Bovie. The uterine incision was closed with 0 Vicryl in a running locked fashion a second imbricating suture was performed to obtain hemostasis. The pelvis was then copiously irrigated and cleared of all clots and debris. The uterus was returned to the abdomen. Small amount of bleeding was noted from the adhesion site Surgicel powder and Interceed was placed along this area. Rectus muscles were inspected and any points of bleeding were made hemostatic with the Bovie. Rectus muscles were loosely reapproximated. The fascia was then closed with 0 Vicryl in a running fashion from one lateral edge the other. The subcutaneous tissue was irrigated and any points of bleeding were made hemostatic with the Bovie. The subcu stitch was then closed with 3-0 Vicryl in a running fashion. The subcu tissue was closed with 4-0 Vicryl in a septic fashion. Steri-Strips and sterile dressings were applied. Uterus was firm and below the umbilicus. All counts were noted be correct 2 at the end of the procedure. Patient and tolerated delivery well and are resting comfortably.
[2023-06-11] MEDS ORDERED: OXYTOCIN 30 UNITS/500 ML NS 30 UNIT in SALINE 1 500ML.BAG IV SCH (11:00)
[2023-06-11] MEDS: ACETAMINOPHEN IV (For NPO) 1,000 MG in EMPTY BAG 1 BAG IVPB SCH (11:46)
[2023-06-11] MEDS: ACETAMINOPHEN TAB 500 MG TAB PO SCH ×3 (13:36→23:54)
[2023-06-11] MEDS ORDERED: IBUPROFEN IV 800 MG in SODIUM CHLORIDE 0.9% 250 ML IV PRN (15:30)
[2023-06-11] MEDS: IBUPROFEN 600 MG TAB PO SCH ×2 (16:54→21:18)
[2023-06-11] MEDS ORDERED: IBUPROFEN IV 800 MG in SODIUM CHLORIDE 0.9% 250 ML IV SCH (18:00)
[2023-06-11] MEDS: SENNOSIDES-DOCUSATE SODIUM 1 EACH TAB PO SCH (19:47)
[2023-06-12] MEDS: IBUPROFEN 600 MG TAB PO SCH ×4 (03:35→21:41)
[2023-06-12] MEDS: ACETAMINOPHEN TAB 500 MG TAB PO SCH ×3 (06:24→19:05)
[2023-06-12] MEDS: LEVOTHYROXINE 100 MCG TAB PO SCH (06:24)
[2023-06-12 06:52] LABS: Basophils % (A) 0 %; Eosinophils # (A) 0.1 k/uL (0-0.7); Eosinophils % (A) 1 %; HCT 33.9 % (34.0-46.0); HGB 11.3 gm/dL (11.4-16.0); Lymphocytes # (A) 1.6 k/uL (1.0-4.8); Lymphocytes % (A) 17 %; MCH 28.6 pg (25.0-35.0); MCHC 33.5 g/dL (31.0-37.0); MCV 85.5 fL (80.0-100.0); Mean Platelet Volume 8.4; Monocytes # (A) 0.4 k/uL (0-1.0); Monocytes % (A) 4 %; Neutrophils # (A) 7.4 k/uL (1.3-7.7); Neutrophils % (A) 76 %; Platelet Count 152 k/uL (150-450); RBC 3.97 m/uL (3.80-5.40); RDW 14.1 % (11.5-15.5); WBC 9.7 k/uL (3.8-10.6)
[2023-06-12] MEDS: SIMETHICONE 80 MG CHEWABLE PO PRN (07:43)
[2023-06-12] MEDS: SENNOSIDES-DOCUSATE SODIUM 1 EACH TAB PO SCH ×2 (07:43→20:06)
[2023-06-12] MEDS: PRENATAL VIT-IRON-FOLIC ACID 1 EACH TABLET PO SCH (09:23)
[2023-06-12] MEDS: LACTATED RINGERS 1,000 ML IV SCH ×5 (10:01→12:10)
[2023-06-12] MEDS: ACETAMINOPHEN IV (For NPO) 1,000 MG in EMPTY BAG 1 BAG IVPB SCH (10:02)
--- NOTE | 2023-06-12 10:47 | P.PNOBGPC ---
Subjective - Subjective Patient reports: Reports appetite normal, Reports voiding normally, Reports pain well controlled, Reports ambulating normally : doing well, nursing well Objective - Vital Signs Latest vital signs: Vital Signs Temp Pulse Resp BP Pulse Ox 06/12/23 07:30 98.2 F 72 18 105/63 97 06/12/23 06:00 16 06/12/23 04:00 97.6 F 77 16 100/52 96 06/12/23 02:00 16 06/12/23 00:00 98.1 F 75 16 109/58 95 06/11/23 22:00 16 06/11/23 20:00 97.9 F 68 16 109/54 98 06/11/23 17:58 16 97 06/11/23 16:00 98.0 F 68 16 93/52 98 06/11/23 12:56 18 100 06/11/23 11:56 18 100 06/11/23 11:13 78 18 109/54 99 Intake and Output 06/11/23 06/12/23 06/12/23 22:59 06:59 14:59 Output Total 2400 1600 725 Balance -2400 -1600 -725 Output: Urine 1500 1600 725 Uretheral (Coy) 750 800 Output, Quantitative 900 Blood Loss Other: Voiding Method Toilet # Voids 1 - Exam Extremities: Present: normal Abdomen: Present: normal appearance, soft. Absent: distention, tenderness Incision: Present: normal, dry, intact Uterus: Present: normal, firm (The uterine fundus is tonic and appropriately tender just below the umbilicus.) - Labs Labs: Abnormal Lab Results - Last 24 Hours (Table) 06/12/23 Range/Units 06:38 Hgb 11.3 L (11.4-16.0) gm/dL Hct 33.9 L (34.0-46.0) % Assessment and Plan (1) Status post section Current Visit: Yes Status: Acute Code(s): Z98.891 - HISTORY OF UTERINE SCAR FROM PREVIOUS SURGERY SNOMED Code(s): 754696197 Plan: Continue routine and postoperative care. I have encouraged the patient ambulate in the hallways routinely. I would anticipate discharge home tomorrow pending no complications.
--- NOTE | 2023-06-12 15:12 | P.PN ---
Progress Note - Text Progress Note Date: 06/12/23 Postoperative day 1 status post section under spinal anesthesia, and i ntrathecal morphine given for postoperative analgesia, patient doing well, there is no anesthesia related complications, Patient had no headache, vital signs stable , Assessment and plan= postop day 1 status post , doing well there is no anesthesia related complication.
[2023-06-13 00:39] VITALS: BP 116/65; RESP 16
[2023-06-13] MEDS: ACETAMINOPHEN TAB 500 MG TAB PO SCH ×3 (01:19→11:51)
[2023-06-13] MEDS: IBUPROFEN 600 MG TAB PO SCH ×3 (04:18→14:18)
[2023-06-13] MEDS: LEVOTHYROXINE 100 MCG TAB PO SCH (06:32)
[2023-06-13] MEDS: SENNOSIDES-DOCUSATE SODIUM 1 EACH TAB PO SCH (08:15)
[2023-06-13] MEDS: SIMETHICONE 80 MG CHEWABLE PO PRN (08:22)
[2023-06-13] MEDS: PRENATAL VIT-IRON-FOLIC ACID 1 EACH TABLET PO SCH (08:22)
[2023-06-13 09:23] VITALS: PULSE 78; TEMP 98.1
--- NOTE | 2023-06-13 11:26 | P.DS ---
Providers Date of admission: 06/11/23 06:00 Expected date of discharge: 06/13/23 Attending physician: Adrienne Jay Primary care physician: Stated None - Discharge Diagnosis(es) (1) Status post section Current Visit: Yes Status: Acute Hospital Course: The patient is a 22-year-old 2 para [id number] admitted at 39 and one sevenths weeks by good dating parameters for repeat section. Her has been uncomplicated. On labor and delivery, all signs reassuring with a category 1 heart rate tracing. She was taken the operating room where she underwent repeat low transverse section and a relatively uncomplicated fashion. She was found with a moderate to significant degree of adhesions between the left fundal portion of the uterus and the anterior abdominal wall extending down towards the pelvis. These were taken down sharply during the procedure and oversewn at the time of closure. A piece of Interceed was placed across the repair to attempt to decrease further adhesion formation. She was delivered of a viable 5 lbs. 5 oz. baby girl with Apgars of 4 at 1 minute, 7 at 5 minutes, and 8 at 10 minutes. Her postoperative course was unremarkable vital signs being stable and her temperature was afebrile throughout. She was deemed stable for discharge on postoperative day #2 and was discharged home to follow-up in the office in 2 weeks for an incision check and 6 weeks routinely. Discharge instructions included calling for any significantly increased bleeding or foul-smelling lochia, significantly increased fever or abdominal pain, perineal complaints, breast complaints, incisional complaints, or anything else that concerned her. She is additionally instructed to have nothing in the vagina for at least 6 weeks time to include intercourse. She was instructed to do no driving until off of all pain medications or 2 weeks' time, whichever came first. She was additionally instructed to be cautious with lifting as her body will allow. She understood all of her instructions and agrees to follow up as noted above. Discharge medications included continued vitamins as she has opted to breast-feed as well as [id number] analgesic pain medications and any home medications she might take. She was provided a prescription for tramadol 50 mg, 1-2 by mouth every 6 hours when necessary pain, #20 dispensed with no refills. Maternal blood type is O+ and rubella status is immune. Discharge hemoglobin and hematocrit were 11.3 and 33.9 respectively. Procedures: #1. Repeat low transverse section #2. Intraoperative lysis of adhesions Patient Condition at Discharge: Stable Plan - Discharge Summary Discharge Rx Participant: No New Discharge Prescriptions: No Action Pnv No.95/Ferrous Fum/Folic AC [ Multivitamin Tablet] 1 each PO DAILY Levothyroxine Sodium [Synthroid] 100 mcg PO DAILY Discharge Medication List Pnv No.95/Ferrous Fum/Folic AC [ Multivitamin Tablet] 1 each PO DAILY 09/25/21 [History] Levothyroxine Sodium [Synthroid] 100 mcg PO DAILY 06/08/23 [History] Follow up Appointment(s)/Referral(s): Adrienne Jay DO [Doctor of Osteopathic Medicine] - 2 Weeks Discharge Disposition: HOME SELF-CARE
== END 2023-06-13 14:34 | disposition home or self-care (01) | DRG 788 ==
LOC: 4FBP 06:00
PROVIDERS: ADMIT Obstetrics & Gynecology Obstetrics; ATTEND Obstetrics & Gynecology Obstetrics
PROC: 0DNW0ZZ Release Peritoneum, Open Approach (ICD-10-PCS; 2023-06-11)
PROC: 0DNU0ZZ Release Omentum, Open Approach (ICD-10-PCS; 2023-06-11)
PROC: 10D00Z1 Extraction of Products of Conception, Low, Open Approach (ICD-10-PCS; principal; 2023-06-11 08:00)
DX: O34.211 Maternal care for low transverse scar from previous cesarean delivery (principal); O99.62 Diseases of the digestive system complicating childbirth; O77.0 Labor and delivery complicated by meconium in amniotic fluid; O99.284 Endocrine, nutritional and metabolic diseases complicating childbirth; O99.892 Other specified diseases and conditions complicating childbirth; N73.6 Female pelvic peritoneal adhesions (postinfective); Z37.0 Single live birth; Z3A.39 39 weeks gestation of pregnancy; Z79.890 Hormone replacement therapy; Z82.49 Family history of ischemic heart disease and other diseases of the circulatory system; E06.3 Autoimmune thyroiditis
CPT/HCPCS: 85025; 86850; 86900; 86901

== ENCOUNTER → 2023-08-28 | Outpatient (CLI) | payer OTHER ==
[2023-08-28 22:13] LABS: Basophils # (A) 0.02 X 10*3/uL (0.00-0.10); Basophils % (A) 0.7 %; Eosinophils # (A) 0.06 X 10*3/uL (0.04-0.35); Eosinophils % (A) 2.2 %; HCT 41.1 % (37.2-46.3); HGB 13.7 g/dL (12.0-15.0); Lymphocytes # (A) 0.98 X 10*3/uL (0.90-5.00); Lymphocytes % (A) 35.9 %; MCH 27.7 pg (27.0-32.0); MCHC 33.3 g/dL (32.0-37.0); Monocytes # (A) 0.41 X 10*3/uL (0.20-1.00); NRBC Per 100 WBC 0 X 10*3/uL (0.00-0.01); Neutrophils # (A) 1.25 X 10*3/uL (1.80-7.70); Neutrophils % (A) 45.8 %; Platelet Count 132 X 10*3/uL (140-440); RBC 4.95 X 10*6/uL (4.10-5.20); WBC 2.73 X 10*3/uL (4.50-10.00)
[2023-08-28 22:23] LABS: Blood Urea Nitrogen 8.7 mg/dL (9.0-27.0); Carbon Dioxide 25.1 mmol/L (21.6-31.8); Chloride 104 mmol/L (96-109); Chol/HDL Ratio 1.61 Ratio; Glucose 93 mg/dL (70-110); LDL Cholesterol,Calculated 43.5 mg/dL (0.0-131.0); Potassium 3.7 mmol/L (3.5-5.5); Sodium 141 mmol/L (135-145); VLDL Calculation 10.84 mg/dL (5.00-40.00)
[2023-08-28 22:24] LABS: ALT 39 U/L (8-44); AST 33 U/L (13-35); Albumin 4.7 g/dL (3.8-4.9); Albumin/Globulin Ratio 2.04 Ratio (1.60-3.17); Alkaline Phosphatase 98 U/L (41-126); Calcium 9.2 mg/dL (8.7-10.3); Globulin 2.3 g/dL (1.6-3.3); Total Bilirubin 0.3 mg/dL (0.3-1.2)
== END | disposition home or self-care (01) ==
LOC: LABWHC1 10:10
PROVIDERS: ATTEND Internal Medicine Endocrinology, Diabetes & Metabolism
DX: Z13.6 Encounter for screening for cardiovascular disorders (principal); Z13.1 Encounter for screening for diabetes mellitus; Z13.818 Encounter for screening for other digestive system disorders; Z13.0 Encounter for screening for diseases of the blood and blood-forming organs and certain disorders involving the immune mechanism; E06.3 Autoimmune thyroiditis; E03.8 Other specified hypothyroidism
CPT/HCPCS: 36415; 80053; 80061; 84443; 85025; 86803

== ENCOUNTER → 2023-10-30 | Outpatient (CLI) | payer OTHER | END | disposition home or self-care (01) | LOC: LABWHC1 08:35 | PROVIDERS: ATTEND Internal Medicine Endocrinology, Diabetes & Metabolism | DX: E03.8 Other specified hypothyroidism (principal) | CPT/HCPCS: 36415; 84443 ==

== ENCOUNTER → 2024-06-12 | Outpatient (CLI) | payer OTHER | END | disposition home or self-care (01) | LOC: LABWHC1 10:58 | PROVIDERS: ATTEND Internal Medicine Endocrinology, Diabetes & Metabolism | DX: E03.8 Other specified hypothyroidism (principal) | CPT/HCPCS: 36415; 84443 ==

== ENCOUNTER → 2024-12-16 | Outpatient (CLI) | payer OTHER | END | disposition home or self-care (01) | LOC: LABWHC1 08:13 | PROVIDERS: ATTEND Internal Medicine Endocrinology, Diabetes & Metabolism | DX: E03.8 Other specified hypothyroidism (principal) | CPT/HCPCS: 36415; 84443 ==